=== PATIENT | male | born 1945 | race Caucasian/White ===

== ENCOUNTER 2020-04-05 08:21 | Inpatient (IN) | payer MEDICARE ==
[~2020-04-05] VITALS: Ht 175.3 cm; Wt 94.1 kg
[2020-05-10] VITALS (10 sets, daily range): BP systolic 127–151; BP diastolic 71–82; PULSE 81–96; TEMP 97.7–98.3
[2020-05-10] MEDS ORDERED: PRILOSEC 20MG20 MG PO (06:11)
[2020-05-10] MEDS ORDERED: PRAVACHOL 20MG20 MG PO (06:12)
[2020-05-10] MEDS ORDERED: NORCO 325 MG-51 TAB PO (06:12)
--- NOTE | 2020-05-10 20:10 | NUR ---
Pt. sitting up in bed. Pt. is A&OX3, assessment complete. IV to lt. hand patent, fluids infusing per orders. Abd. lap sites CDI. VAHID drain with bloody drainage noted. Pt. reports pain at a 4 on pain scale, gave pain meds per ERAS. Pt. denies further needs, call light within reach.
--- NOTE | 2020-05-12 09:10 | NUR ---
JO met with the patient and his , Estela (ph#[phone]), to discuss discharge plan. The patient lives in [place] with his . He reports independence with ADLS and does not have any DME. The patient's PCP is Dr. Gaurang Lindsey and he receives his medications from [facility]. The patient does not have a DPOA-HC, but he was interested in obtaining a form. JO provided. The patient plans to return home with his upon discharge. No additional needs at this time.
[2020-05-12 15:27] LABS: CALCIUM 8.2 mg/dL (8.4-10.2); CREATININE, serum 1.04 (0.66-1.25); POTASSIUM 3.8 mmol/L (3.4-5.0)
[2020-05-13 00:15] LABS: HEMATOCRIT 34.8 % (42.0-52.0); HEMOGLOBIN 11.3 g/dl (13.5-18.0)
== END 2020-05-11 16:00 | disposition home or self-care (01) | DRG 708 ==
LOC: INPTSU 05-10 05:31 → SURG 05-10 07:30
PROVIDERS: ADMIT Urology
PROC: 07BC4ZZ Excision of Pelvis Lymphatic, Percutaneous Endoscopic Approach (ICD-10-PCS; 2020-05-10)
PROC: 8E0W4CZ Robotic Assisted Procedure of Trunk Region, Percutaneous Endoscopic Approach (ICD-10-PCS; 2020-05-10)
PROC: 0VT04ZZ Resection of Prostate, Percutaneous Endoscopic Approach (ICD-10-PCS; principal; 2020-05-10 07:30)
DX: C61 Malignant neoplasm of prostate (principal); M48.00 Spinal stenosis, site unspecified; E78.00 Pure hypercholesterolemia, unspecified; F32.9 Major depressive disorder, single episode, unspecified; M19.90 Unspecified osteoarthritis, unspecified site; Z87.891 Personal history of nicotine dependence
CPT/HCPCS: A4314; A9284; J0690; J1170; J1885; J2270; J2704; J3010; J7120